=== PATIENT | female | born 1970 | race Caucasian/White ===

== ENCOUNTER 2020-12-20 09:07 | Day surgery (SDC) | payer BC ==
[~2020-12-20 09:07] MED LIST: Lactated Ringers 1,000 ML IV SCH
[2020-12-20] MEDS ORDERED: Midazolam 1 MG/ML 2 ML SDV ONE (11:43)
[2020-12-20] MEDS ORDERED: Propofol 200 MG/20 ML SDV ONE (11:43)
[2020-12-20] MEDS ORDERED: fentaNYL 100 MCG/2 ML SDV ONE (11:43)
--- NOTE | 2020-12-21 08:09 | OR ---
DATE OF SURGERY: 12/20/2020. REFERRING PROVIDER: Avis Robert PA-C. PRE-OPERATIVE DIAGNOSIS: Screening colonoscopy. This is the patient's first colonoscopy. She denies any GI symptoms. There is a positive family history of colon cancer in maternal grandmother as well as maternal aunt. POST-OPERATIVE DIAGNOSES: 1. Total of 2 polyps removed. a. 2 mm polyp at 115 cm, removed using cold forceps. b. 5 mm polyp at 15 cm, removed using hot snare. 2. Normal-appearing terminal ileum. PROCEDURE: Colonoscopy with polypectomy x2 (1 using hot snare and 1 using cold forceps). SURGEON: Sylvain Holguin M.D. ANESTHESIA: Monitored anesthesia care. BOWEL PREP: Good. is a 50-year-old female who was brought to the endoscopy suite after discussing risks and benefits of the procedure. Informed consent was obtained for conscious sedation and colonoscopy with or without biopsy and/or polypectomy. We also discussed possibility of missed lesions. Pre-procedure exam was unremarkable. IV, oxygen, and monitors were placed. The patient was placed in the left lateral decubitus position. Sedation was administered and a digital rectal exam was performed and unremarkable. Colonoscope was passed into the rectum and slowly advanced all the way to the cecum. Cecum was viewed and photographed. Ileocecal valve was intubated and terminal ileum was normal in appearance. The colonoscope was slowly withdrawn and the mucosa was closely observed in a direct circumferential manner. The ascending colon revealed 2 mm polyp at 115 cm, removed using cold forceps. The transverse colon was unremarkable. The descending colon was unremarkable. The sigmoid colon revealed 5 mm polyp at 15 cm, removed using hot snare. Retroflexion was performed and rectal mucosa was unremarkable. Scope was removed. The patient tolerated the procedure well. The patient was monitored until that baseline status. Discharge instructions were reviewed and the patient was discharged in good condition. COMPLICATIONS: None. TOTAL TIME: 25 minutes. ESTIMATED BLOOD LOSS: Less than 1 mL. RECOMMENDATIONS/FOLLOW-UP: We will await results of path report to determine ideal followup interval. I would like to kindly thank Avis Robert for this referral. DMB: 12/20/2020 12:33:19 MODL: 12/20/2020 15:42:27 /[id number]
== END 2020-12-20 13:00 | disposition home or self-care (01) ==
LOC: VM.SDS 09:07
PROVIDERS: ATTEND Family Medicine
DX: Z12.11 Encounter for screening for malignant neoplasm of colon (principal); D12.6 Benign neoplasm of colon, unspecified; E03.9 Hypothyroidism, unspecified; Z80.0 Family history of malignant neoplasm of digestive organs; Z87.891 Personal history of nicotine dependence
CPT/HCPCS: 00812; 45380; 45385; J2250; J2704; J3010; J7120

== ENCOUNTER 2024-04-26 06:40 | Emergency (ER) | payer BC ==
[2024-04-26] MEDS: Amoxicillin/Clavulanate K 875-125 MG Tab PO ONE (08:16)
[2024-04-26] MEDS: Doxycycline Monohydrate 100 MG Cap PO ONE (08:16)
== END 2024-04-26 08:23 | disposition home or self-care (01) ==
LOC: VM.ED 06:40
DX: B34.9 Viral infection, unspecified (principal); E03.9 Hypothyroidism, unspecified; Z79.890 Hormone replacement therapy; Z79.899 Other long term (current) drug therapy
CPT/HCPCS: 71045; 87428; 87651; 99283; A9270